=== PATIENT | female | born 1975 | race Caucasian/White ===

== ENCOUNTER 2023-09-10 16:27 | Emergency (ER) | payer OTHER, SELFPAY ==
--- NOTE | 2023-09-10 17:31 | ED.GENMED ---
History of Present Illness
General
Chief Complaint: Breathing Problem
Source: patient and family
Exam Limitations: none
Time Seen by Provider: 09/10/23 16:58
Nursing documentation reviewed up to this point in time: agreed with
Travel History
Have you had any contact with someone who has COVID-19?: No
Do you have any symptoms of coronavirus? Fever > 100 degrees, chills, cough, shortness of breath, sore throat, loss of taste or smell, muscle aches, or headache?: No
History of Present Illness
History of Present Illness:
Is a pleasant 48-year-old female who presents with cough and shortness of breath for the last 4 days. Patient is concerned because last time she felt this was she thought she had pneumonia. She has had intermittent fevers throughout this time.
She states that her cough is nonproductive. Patient was exposed to a coworker that was sent home with pneumonia. Patient denies sore throat. She reports nothing makes her symptoms better or worse.
Vital signs are stable. Patient not hypoxic
Nursing note reviewed. I agree with nursing documentation up to this point in time.
Home Meds and allergies reviewed.
NUMBER AND COMPLEXITY OF PROBLEMS ADDRESSED AT THE ENCOUNTER
� Chronic conditions affecting care: Breast cancer, in remission, hyperlipidemia
� Acute Exacerbation and/or Progression of Chronic Illness: None
� Differential Diagnosis includes: Pneumonia, bronchitis
AMOUNT AND/OR COMPLEXITY OF DATA TO BE REVIEWED AND ANALYZED
I performed an independent evaluation of the following and my interpretation is:
EKG: EKG shows normal sinus rhythm rate of 78 with normal intervals, normal axis. No evidence of acute ischemia present.
CT:
X-rays:
Ultrasound:
Laboratory Studies:
Other:
Review of other/old records: Chest x-ray from 10/24/2019
Clinical information was obtained by an independent historian: Significant other who is present at the bedside
Prescriptions/Medications Considered but not given:
Further testing considered but not performed:
RISK OF COMPLICATIONS AND/OR MORBIDITY OR MORTALITY OF PATIENT MANAGEMENT
Social determinants of health affecting care: Good Social Support
Discussion with other providers:
Escalation of care including admission/observation vs risk of discharge considered:
CRITICAL CARE NOTE:
Total Time (exclusive of procedures):
Update:
Past History
Past History
ED Past Medical History: Hypercholesterolemia
ED Past Surgical History: Appendectomy and Gynecological
Social History
Tobacco: Non-smoker
Personal:
Living: with family
Employment: Employed
Phy Exam
General Physical Exam
General Presentation: well appearing and no apparent distress
General Skin: warm and dry
General Habitus: normal
General Mental: alert
General Hydration: appears well hydrated
ENT Exam
ENT Exam: EOMI, pharynx normal, neck supple and normocephalic
Eye Exam
Eye Exam: PERRL, cornea clear and conjunctiva normal
Cardiovascular Exam
Cardiovascular Exam: regular rate/rhythm, no edema, no murmur and normal peripheral pulses
Pulmonary Exam
Pulmonary Exam: no rales, chest non tender and generalized wheezing
Gastrointestinal Exam
Gastrointestinal Exam: normal bowel sounds, non tender, soft, no organomegaly, no pulsatile mass and non distended
Neurological Exam
Neurological Exam: alert, oriented x3, no motor deficits and speech normal
Musculoskeletal Exam
Musculoskeletal Exam: full ROM and no edema
Skin Exam
Skin Exam: normal color, warm/dry, no rash and no petechia
Psychiatric Exam
Psychiatric Exam: normal mood/affect
Scores
Heart Failure Risk
Heart Failure Risk Score: Not Applicable
Course
Orders/Labs/Results
Orders:
Orders
09/10/23 16:33
Electrocardiogram (*1) Urgent
Reason for Study: Chest Pain
EKG- Treatment ONCE
Chest [CR Chest - 2 Views ] Urgent
Comment:
Reason For Exam: SOB, cough
09/10/23 17:37
COVID-19 Antigen Urgent
Source: Nasal Swab
Influenza A+B Rapid Molecular Urgent
TERE Source: Nasal Swab
Specimen Description:
09/10/23 18:08
Dexamethasone Pf [Decadron] 10 mg PO NOW STA
09/10/23 18:15
Ipratropium/Albuterol Sulfate [Duoneb] 3 ml INH R NOW ONE
Vital Signs
Initial and Last Documented VS:
Initial Vital Signs
Temp Pulse Resp Pulse Ox
97.8 F 81 18 97
09/10/23 16:30 09/10/23 16:30 09/10/23 16:30 09/10/23 16:30
Last Documented Vital Signs
Temp Pulse Resp BP Pulse Ox
97.8 F 75 18 142/83 99
09/10/23 16:30 09/10/23 18:25 09/10/23 18:25 09/10/23 18:25 09/10/23 18:25
*Critical Care Note
Total Time (30-74mins, 75-104mins- exclusive of procedures): Not Applicable
Update Note
Update Note:
09/10/2023 1847 PM: Back in to see the patient. She got her steroids at [facility]. She is feeling somewhat better. She will be discharged with 3 prescriptions. We did discuss return to ER instructions. She will get a work note.
ED Attending Note
-
Portions of this chart may have been created with voice recognition software.� Occasional wrong word or��sound alike� substitutions may have occurred due to the inherent limitations of voice recognition software.
Discharge Plan
Departure
Patient Disposition: Home (Routine Discharge)
Date of Disposition: 09/10/23
Time of Disposition: 18:47
Patient with high blood pressure during this ER visit?: Yes
Condition: Good
Discharge Problem:
Acute bronchitis
Instructions: Acute Bronchitis, Adult (DC), BLOOD PRESSURE
Prescriptions:
New
benzonatate 100 mg capsule
100 mg PO Q4H PRN (Reason: Cough) Qty: 20 0RF
albuterol sulfate [ProAir HFA] 90 mcg/actuation HFA aerosol inhaler
1 puff inhalation Q4HPRN PRN (Reason: shortness of breath) Qty: 8.5 0RF
prednisone 50 mg tablet
50 mg PO DAILY Qty: 4 0RF
No Action
cetirizine 10 MG tablet
10 mg PO DAILY
rosuvastatin 20 MG tablet
20 mg PO QPM
Repatha SureClick 140 mg/mL Pen Injector
140 mg SC Q2W
gabapentin 600 mg Tablet
600 mg PO HS
sertraline 100 mg Tablet
100 mg PO DAILY
Hair,Skin and Nails Tablet
1 tab PO DAILY
tamoxifen 20 mg Tablet
20 mg PO DAILY
coQ10 (ubiquinol) 100 mg Capsule
100 mg PO DAILY
Referrals:
Asya Esquivel CRNP [Family Provider] - Follow up in 2-3 days
Stand Alone Forms: Return to Work
Activity Restrictions/Additional Instructions:
It was a pleasure meeting you and taking part in your care. We hope for your continued healing and wellness.
Please read discharge instructions in their entirety. However, they are for general education and may not describe your exact diagnosis at discharge. Information on your ER visit and medical conditions were discussed with you along with appropriate
follow up information...
If indicated, please take your medications as instructed and indicated on discharge paperwork.
Please schedule a follow up appointment as directed. Call to schedule an appointment
Please return to the emergency department with ANY change in, persisting, or worsening of symptoms. If any of your symptoms do not improve, or persist, or become more severe within 6-12 hours, please return to the emergency department for further
care.
Please return to the emergency department if you develop a headache, neck pain/stiffness, fever greater than 100.4F, chest pain, shortness of breath, persistent nausea, vomiting, slurred speech, difficulty walking, numbness/tingling, weakness, signs
of infection or any other symptoms that are worrisome to you.
If you have any questions or concerns please do not hesitate to call the Hospital at or E-mail me directly at [email or web address]
Interventions
Interventions:
*General Assessment Last Done: 09/10/23 16:30
ED- Fall Risk Assessment Last Done: 09/10/23 17:44
*ED COVID-19 Vaccine History Last Done: 09/10/23 16:30
*Nursing Disposition Last Done: 09/10/23 18:57
ED- Cardiac Assessment Last Done: 09/10/23 17:44
ED- Pulmonary Assessment Last Done: 09/10/23 17:44
Discharge Date and Time
Discharge Date/Time: 09/10/23 19:00
[2023-09-10 18:06] LABS: COVID-19 Antigen Negative (Negative)
[2023-09-10] MEDS: DECADRON 10 MG PO (18:21)
[2023-09-10] MEDS: DUONEB 3 ML INH (18:21)
[2023-09-10 18:25] VITALS: BP 142/83
== END 2023-09-10 19:00 | disposition home or self-care (01) ==
LOC: EMR 16:27
PROVIDERS: EMERGENCY PHYSICIAN Student in an Organized Health Care Education/Training Program; FAMILY PHYSICIAN Nurse Practitioner Primary Care
DX: J20.9 Acute bronchitis, unspecified (principal); R51.9 Headache, unspecified; Z11.52 Encounter for screening for COVID-19; R03.0 Elevated blood-pressure reading, without diagnosis of hypertension; E78.00 Pure hypercholesterolemia, unspecified; Z85.3 Personal history of malignant neoplasm of breast; Z91.048 Other nonmedicinal substance allergy status
CPT/HCPCS: 99283; 94640; 71046; 87502; 87811; 93005

== ENCOUNTER → 2024-05-03 16:20 | Outpatient (REF) | payer OTHER, SELFPAY ==
[2024-05-03 17:12] LABS: % Basophils 0.5 % (0-2); % Immature Granulocytes 0.3 % (0-0.5); % Lymphocytes 24.2 % (20.5-51.1); % Monocytes 6.7 % (1.7-9.3); % Neutrophils 66.3 % (42.2-75.2); Absolute Eosinophils 0.1 10^3/uL (0-0.7); Absolute Lymphocytes 1.5 10^3/uL (1.2-3.4); Absolute Monocytes 0.4 10^3/uL (0.1-0.6); Hematocrit 35.8 % (37.0-47.0); Hemoglobin 12.1 g/dL (12.0-16.0); Mean Corp Hgb Conc. 33.8 g/dL (33.0-37.0); Mean Corpuscular Hgb 30.6 pg (27.0-31.0); Mean Corpuscular Volume 90.4 fL (81.0-99.0); Mean Platelet Volume 9.9 fL (7.4-10.4); Nucleated Red Blood Cells % 0 %; Platelet Count 284 10^3/uL (130-400); Red Blood Cell Count 3.96 10^6/uL (4.20-5.40); Red Cell Dist. Width 13.5 % (11.5-14.5); Urine Albumin Negative (Neg - Trace); Urine Bilirubin Negative (Negative); Urine Character Clear (Clear); Urine Color Yellow; Urine Glucose Negative (Negative); Urine Ketone Negative (Negative); Urine Leukocyte Negative (Negative); Urine Nitrite Negative (Negative); Urine Occult Blood Negative (Negative); Urine Urobilinogen Negative (Neg - 1+)
[2024-05-03 17:50] LABS: ALT (SGPT) 26 U/L (0-35); AST (SGOT) 37 U/L (14-36); Albumin 4.9 g/dl (3.5-5.0); Alkaline Phosphatase 111 U/L (38-126); Blood Urea Nitrogen 13 mg/dl (7-17); Calcium 9.4 mg/dl (8.4-10.2); Carbon Dioxide 27 mmol/L (22-30); Chloride 104 mmol/L (98-107); Glucose 98 mg/dl (70-99); Potassium 3.8 mmol/L (3.5-5.1); Sodium 143 mmol/L (135-145); Total Bilirubin 0.3 mg/dl (0.2-1.3); Total Protein 7.5 g/dl (6.3-8.2); eGFR > 60.00
[2024-05-03 18:05] LABS: Free T4 0.65 ng/dl (0.78-2.19)
[2024-05-03 18:19] LABS: TSH 3.87 uIU/ml (0.47-4.68)
== END ==
LOC: REG 16:20
PROVIDERS: ATTENDING PHYSICIAN Nurse Practitioner Family; FAMILY PHYSICIAN Nurse Practitioner Primary Care
DX: R10.2 Pelvic and perineal pain (principal); M79.7 Fibromyalgia; Z87.19 Personal history of other diseases of the digestive system
CPT/HCPCS: 36415; 80053; 81003; 84439; 84443; 85025

== ENCOUNTER 2024-05-05 14:36 | Emergency (ER) | payer OTHER, SELFPAY ==
[2024-05-05] MEDS: NSS 1000 IV (16:09)
--- NOTE | 2024-05-05 16:09 | ED.GENMED ---
History of Present Illness
<Lucia Jimenes PA-C - Last Filed: 05/05/24 23:33>
General
Chief Complaint: Abdominal Symptoms
Source: patient
Exam Limitations: none
Time Seen by Provider: 05/05/24 15:22
Nursing documentation reviewed up to this point in time: agreed with
History of Present Illness
History of Present Illness:
48-year-old female with history diverticulitis presenting to the emergency department abdominal pain. Patient states that she has had intermittent abdominal bloating, nausea, and lower abdominal pain since . She was seen by her primary
care provider on Monday where lab work was obtained without any abnormalities. Patient states that yesterday she was extremely fatigued with a low-grade temp of 99.5 F. She reports pain along her left lower abdomen and left flank with some
radiation around to her left low back. Patient did have multiple episodes of diarrhea this morning, as well. Patient denies any vomiting, hematochezia, melena. Patient denies any dysuria or other urinary symptoms.
Patient does have a history of diverticulitis in the past�states it feels similar to this.
Past History
<Lucia Jimenes PA-C - Last Filed: 05/05/24 23:33>
Past History
ED Past Medical History: Hypercholesterolemia
ED Past Surgical History: Appendectomy and Gynecological
Social History
Tobacco: Non-smoker
Personal:
Living: with family
Employment: Employed
Review of Systems
<Lucia Jimenes PA-C - Last Filed: 05/05/24 23:33>
Review of Systems
Allergies reviewed?: Yes
All Other Systems: ROS reviewed and negative except as documented in HPI and ROS
Phy Exam
<Lucia Jimenes PA-C - Last Filed: 05/05/24 23:33>
Physical Exam
Physical Exam:
Vitals: Patient's vital signs are stable. Afebrile
General: Patient is well appearing, no acute distress
Skin: Warm and dry, no rashes or lesions
Head: Normocephalic, atraumatic
Eyes: Sclera nonicteric. EOMs intact. No nystagmus.
Throat: Protecting airway
Neck: Normal ROM, no cervical spine tenderness, no meningismus
Cardiac: Regular rate and rhythm, no murmurs.
Pulm: Normal respiratory effort, no wheezes, rales, rhonchi heard on exam.
Abdomen:Abdomen soft. Mild tenderness in left lower quadrant and suprapubic region. No rebound tenderness or guarding. No CVA tenderness
Extremities: No evidence of cyanosis or edema. Great distal pulses.
Neuro: AAOx3. CN II-XII intact. No focal neurologic deficits.
Psychiatric: Normal affect.
Course
<Lucia Jimenes PA-C - Last Filed: 05/05/24 23:33>
Orders/Labs/Results
Orders:
Orders
05/05/24 15:50
0.9% Sodium Chloride 1000 ml [Nss] 1,000 ml IV BOLUS
Test Result ONCE
05/05/24 15:51
CT Abd/Pel (IV only)-DH only Urgent
Comment: hx diverticulitis
Reason For Exam: LLQ abdominal pain, +bloating, +diarrhea
05/05/24 16:07
Complete Blood Count/With Diff Urgent
Comprehensive Metabolic Panel Urgent
HCG, Serum Qualitative Screen Urgent
Lipase Urgent
05/05/24 16:17
Urinalysis Reflex To Culture Urgent
Date Specimen was Collected: 05/05/24
Time Specimen was Collected: 16:16
Urine Microscopic Reflex Cult Urgent
Abnormal Lab Results
05/05/24 05/05/24
16:07 16:17
RBC 3.85 L 10^6/uL
(4.20-5.40)
Hgb 11.4 L g/dL
(12.0-16.0)
Hct 33.8 L %
(37.0-47.0)
Absolute Lymphs (auto) 1.1 L 10^3/uL
(1.2-3.4)
AST 38 H U/L
(14-36)
Leukocyte Esterase Rfl Trace A
(Negative)
Urine Bacteria (Reflex) Few A
(Negative)
05/05/24 16:07
05/05/24 16:07
Vital Signs
Initial and Last Documented VS:
Initial Vital Signs
Temp Pulse Resp Pulse Ox
98.6 F 84 18 96
05/05/24 14:41 05/05/24 14:41 05/05/24 14:41 05/05/24 14:41
Last Documented Vital Signs
Temp Pulse Resp BP Pulse Ox
98.6 F 70 18 153/82 97
05/05/24 14:41 05/05/24 18:09 05/05/24 18:09 05/05/24 18:09 05/05/24 18:09
Maricarmenlt;Erick Costello DO - Last Filed: 05/05/24 17:57>
Orders/Labs/Results
Orders:
Orders
05/05/24 15:50
0.9% Sodium Chloride 1000 ml [Nss] 1,000 ml IV BOLUS
Test Result ONCE
05/05/24 15:51
CT Abd/Pel (IV only)-DH only Urgent
Comment: hx diverticulitis
Reason For Exam: LLQ abdominal pain, +bloating, +diarrhea
05/05/24 16:07
Complete Blood Count/With Diff Urgent
Comprehensive Metabolic Panel Urgent
HCG, Serum Qualitative Screen Urgent
Lipase Urgent
05/05/24 16:17
Urinalysis Reflex To Culture Urgent
Date Specimen was Collected: 05/05/24
Time Specimen was Collected: 16:16
Urine Microscopic Reflex Cult Urgent
Abnormal Lab Results
05/05/24 05/05/24
16:07 16:17
RBC 3.85 L 10^6/uL
(4.20-5.40)
Hgb 11.4 L g/dL
(12.0-16.0)
Hct 33.8 L %
(37.0-47.0)
Absolute Lymphs (auto) 1.1 L 10^3/uL
(1.2-3.4)
AST 38 H U/L
(14-36)
Leukocyte Esterase Rfl Trace A
(Negative)
Urine Bacteria (Reflex) Few A
(Negative)
05/05/24 16:07
05/05/24 16:07
Vital Signs
Initial and Last Documented VS:
Initial Vital Signs
Temp Pulse Resp Pulse Ox
98.6 F 84 18 96
05/05/24 14:41 05/05/24 14:41 05/05/24 14:41 05/05/24 14:41
Last Documented Vital Signs
Temp Pulse Resp BP Pulse Ox
98.6 F 70 18 153/82 97
05/05/24 14:41 05/05/24 18:09 05/05/24 18:09 05/05/24 18:09 05/05/24 18:09
<Lucia Jimenes PA-C - Last Filed: 05/05/24 23:33>
MDM/Problems Addressed
Differential Diagnosis Includes:
Not limited to: Diverticulitis, muscle strain, kidney stone, UTI, cholecystitis, colitis, viral gastroenteritis
MDM/Problems Addressed:
48 year old female w/ history as documented presenting with lower abdominal discomfort and diarrhea. No vomiting or urinary symptoms. Vitals stable. Exam as above. Patient well appearing, in no apparent distress. Abdomen is soft with mild tenderness
in left lower quadrant. No peritoneal signs. Labs were obtained without any clinically significant abnormalities. Urine appears contaminated - do not suspect UTI. Patient given IVF. CT abdomen/pelvis without any acute abnormalities. Given patient is
afebrile and without leukocytosis - will avoid antibiotics at this time. Suspect possible viral gastroenteritis vs colitis. Patient stable for discharge with primary follow-up. Return precautions discussed. Patient seen with attending physician.
Chronic conditions affecting care:
Diverticulosis
Acute Exacerbation and/or Progression of Chronic Illness:
N/A
<Lucia Jimenes PA-C - Last Filed: 05/05/24 23:33>
*Radiology
Radiology exam reviewed: preliminary read by ED provider and radiology read reviewed
*Pulse Oximetry
Patient hypoxic: no
*EKG
Interpreted by ED Provider?: NA
*Surgical Brace Maker Interpretation
Rate: Surgical Brace Maker- N/A
*Critical Care Note
Total Time (30-74mins, 75-104mins- exclusive of procedures): Not Applicable
Data Reviewed
Review of Other/Old Records Reveals: Labs (outpatient labs from 05/03/24 )
<Lucia Jimenes PA-C - Last Filed: 05/05/24 23:33>
Update Note
Update Note:
Update 638PM: CT report reviewed. No acute findings. Patient remains well-appearing. Given there is no leukocytosis and patient is afebrile doubt acute intra-abdominal infection. It is possible that she has a viral gastroenteritis/colitis
causing the symptoms. Feel patient is stable for discharge with close return precautions, primary care follow-up. Patient comfortable with plan and will follow-up with primary to ensure symptoms are improving this week.
ED Attending Note
<Lucia Jimenes PA-C - Last Filed: 05/05/24 23:33>
-
Portions of this chart may have been created with voice recognition software.� Occasional wrong word or��sound alike� substitutions may have occurred due to the inherent limitations of voice recognition software.
<Erick Costello, DO - Last Filed: 05/05/24 17:57>
ED Attending Note
Patient seen and examined by attending physician: Yes
I performed the substantive portion of visit, reviewed & personally made and approve the management plan that is documented in note by myself or NEO.: Yes
ED Attending Note:
I agree with Serena's note
Patient presents with some lower abdominal crampy abdominal pain, diarrhea
General: Awake, Alert, Oriented X3. No acute distress.
Vitals: unremarkable
Head: Atraumatic
Eyes: Pupils equal, EOMI
Lungs: Clear and equal b/l
Heart: Regular rate, no murmurs
Abd: Soft, Nontender, No pulsatile mass
Neuro: Nonfocal
Skin: Warm, dry, no rash
Extremities: pulses equal b/l, no edema
Patient has a benign abdominal exam. CT pending. No evidence of diverticulitis will treat as a viral GI bug.
Discharge Plan
Departure
Patient Disposition: Home (Routine Discharge)
Date of Disposition: 05/05/24
Time of Disposition: 18:45
Patient with high blood pressure during this ER visit?: Yes
Condition: Good
Covid-19: Not Applicable
Discharge Problem:
Abdominal pain, Diarrhea
Instructions: Diarrhea, Adult ED, Abdominal Pain, BLOOD PRESSURE
Prescriptions:
No Action
cetirizine 10 MG tablet
10 mg PO DAILY
rosuvastatin 20 MG tablet
20 mg PO QPM
Repatha SureClick 140 mg/mL Pen Injector
140 mg SC Q2W
gabapentin 600 mg Tablet
600 mg PO HS
sertraline 100 mg Tablet
100 mg PO DAILY
Hair,Skin and Nails Tablet
1 tab PO DAILY
tamoxifen 20 mg Tablet
20 mg PO DAILY
coQ10 (ubiquinol) 100 mg Capsule
100 mg PO DAILY
benzonatate 100 mg capsule
100 mg PO Q4H PRN (Reason: Cough) Qty: 20 0RF
albuterol sulfate [ProAir HFA] 90 mcg/actuation HFA aerosol inhaler
1 puff inhalation Q4HPRN PRN (Reason: shortness of breath) Qty: 8.5 0RF
prednisone 50 mg tablet
50 mg PO DAILY Qty: 4 0RF
Referrals:
Asya Esquivel CRNP [Family Provider] - Follow up in 2-3 days
Activity Restrictions/Additional Instructions:
RETURN TO THE EMERGENCY DEPARTMENT WITH FEVERS, WORSENING ABDOMINAL PAIN, INTRACTABLE NAUSEA/VOMITING, WORSENING IN CURRENT SYMPTOMS, OR ANY OTHER CONCERNS
-As discussed�your CT scan showed no evidence of acute diverticulitis.
-It is importantly stay well-hydrated. I recommend a bland diet over the next days. Plenty of rest. Follow-up with your primary care for further evaluation/management to ensure that symptoms are improving. May need to see a GI doctor for further
evaluation if symptoms persist
Monitor your symptoms closely and return to the emergency department with any acute worsening/new symptoms.
Interventions
Interventions:
*Risk Screen - Suicide Last Done: 05/05/24 16:20
*General Assessment Last Done: 05/05/24 16:20
*Neglect/Abuse Screening Last Done: 05/05/24 16:20
ED- Fall Risk Assessment Last Done: 05/05/24 16:20
*ED COVID-19 Vaccine History Last Done: 05/05/24 16:20
*Nursing Disposition Last Done: 05/05/24 18:55
VJ-Xptvks-Zedngmtedy Assessment Last Done: 05/05/24 16:19
Discharge Date and Time
Discharge Date/Time: 05/05/24 18:55
Print Language: NEPALI
[2024-05-05 16:20] LABS: % Basophils 0.6 % (0-2); % Eosinophils 2.4 % (0-6); % Immature Granulocytes 0.4 % (0-0.5); % Lymphocytes 22.3 % (20.5-51.1); % Monocytes 7.6 % (1.7-9.3); % Neutrophils 66.7 % (42.2-75.2); Absolute Eosinophils 0.1 10^3/uL (0-0.7); Absolute Lymphocytes 1.1 10^3/uL (1.2-3.4); Absolute Monocytes 0.4 10^3/uL (0.1-0.6); Absolute Neutrophils 3.3 10^3/uL (1.4-6.5); Hematocrit 33.8 % (37.0-47.0); Hemoglobin 11.4 g/dL (12.0-16.0); Mean Corp Hgb Conc. 33.7 g/dL (33.0-37.0); Mean Corpuscular Hgb 29.6 pg (27.0-31.0); Mean Corpuscular Volume 87.8 fL (81.0-99.0); Mean Platelet Volume 9.7 fL (7.4-10.4); Nucleated Red Blood Cells % 0 %; Platelet Count 285 10^3/uL (130-400); Red Blood Cell Count 3.85 10^6/uL (4.20-5.40); Red Cell Dist. Width 13.7 % (11.5-14.5)
[2024-05-05 16:26] LABS: Urine Albumin Negative (Neg - Trace); Urine Bilirubin Negative (Negative); Urine Character Clear (Clear); Urine Color Yellow; Urine Glucose Negative (Negative); Urine Ketone Negative (Negative); Urine Leukocyte Trace (Negative); Urine Nitrite Negative (Negative); Urine Occult Blood Negative (Negative); Urine Urobilinogen Negative (Neg - 1+)
[2024-05-05 16:26] LABS: HCG, Serum Qualitative Screen Negative
[2024-05-05 16:30] LABS: ALT (SGPT) 26 U/L (0-35); AST (SGOT) 38 U/L (14-36); Albumin 4.5 g/dl (3.5-5.0); Alkaline Phosphatase 88 U/L (38-126); Blood Urea Nitrogen 11 mg/dl (7-17); Calcium 8.9 mg/dl (8.4-10.2); Carbon Dioxide 26 mmol/L (22-30); Chloride 105 mmol/L (98-107); Glucose 93 mg/dl (70-99); Lipase 86 U/L (23-300); Potassium 4.1 mmol/L (3.5-5.1); Sodium 142 mmol/L (135-145); Total Bilirubin 0.2 mg/dl (0.2-1.3); eGFR > 60.00
[2024-05-05 16:40] LABS: Urine Bacteria Few (Negative); Urine Squamous Cell >30 /LPF (Few)
[2024-05-05 18:09] VITALS: BP 153/82
== END 2024-05-05 18:55 | disposition home or self-care (01) ==
LOC: EMR 14:36
PROVIDERS: Physician Assistant; EMERGENCY PHYSICIAN Emergency Medicine; FAMILY PHYSICIAN Nurse Practitioner Primary Care
DX: R10.30 Lower abdominal pain, unspecified (principal); R19.7 Diarrhea, unspecified; E78.00 Pure hypercholesterolemia, unspecified; Z90.49 Acquired absence of other specified parts of digestive tract
CPT/HCPCS: 96360; 99284; 74177; 80053; 81003; 81015; 83690; 84703; 85025; Q9967

== ENCOUNTER → 2025-04-18 12:03 | Outpatient (REF) | payer OTHER, SELFPAY | LOC: RAD 12:03 | PROVIDERS: ATTENDING PHYSICIAN Nurse Practitioner Primary Care | DX: C50.412 Malignant neoplasm of upper-outer quadrant of left female breast (principal); Z80.0 Family history of malignant neoplasm of digestive organs; R19.7 Diarrhea, unspecified; R14.0 Abdominal distension (gaseous); R10.84 Generalized abdominal pain | CPT/HCPCS: 74177; Q9967 ==

== ENCOUNTER 2025-06-30 06:19 | Day surgery (SDC) | payer OTHER, SELFPAY | END 2025-06-30 15:34 | disposition home or self-care (01) | LOC: GI 06:19 | PROVIDERS: ATTENDING PHYSICIAN Specialist | DX: R19.4 Change in bowel habit (principal); K57.30 Diverticulosis of large intestine without perforation or abscess without bleeding; R10.13 Epigastric pain; K31.7 Polyp of stomach and duodenum; K29.50 Unspecified chronic gastritis without bleeding | CPT/HCPCS: 45380; 43239; 88305; 88342 ==